=== PATIENT | female | born 1945 | race Caucasian/White ===

== ENCOUNTER 2016-10-05 09:45 | Inpatient (IN) ==
--- NOTE | 2016-10-04 21:19 | Discharge Summary ---
<Andreina Jiménez - Last Filed: 10/04/16 21:14> Date of Encounter: 10/04/16 - Discharge Diagnosis (1) Arthritis of knee, left Priority: Primary Status: Acute (2) HTN (hypertension) Priority: Secondary Status: Chronic Qualifiers: Hypertension type: essential hypertension Qualified Code(s): I10 - Essential (primary) hypertension - Discharge Medications Home Medications: Aspirin Enteric Coated [Aspirin EC] 325 mg PO DAILY #21 tablet. 10/04/16 [Rx] OxyCODONE Immed Rel [Roxicodone 5 MG] 5 - 10 mg PO Q6HR PRN #40 tablet 10/04/16 [Rx] Bisoprolol/HCTZ 5/6.25 [Ziac 5/6.25] 1 each PO DAILY 10/05/16 [History] Cetirizine HCl [Zyrtec] 10 mg PO DAILY 10/05/16 [History] Diclofenac Sodium [Voltaren] 1 appl TP QID PRN 10/05/16 [History] Omeprazole [PriLOSEC] 20 mg PO DAILY 10/05/16 [History] Tramadol HCl [Ultram] 50 mg PO QID PRN 10/05/16 [History] Allergies/Adverse Reactions: Allergies codeine Allergy (Verified 03/22/15 07:45) Itching morphine Allergy (Verified 03/22/15 07:45) Insomnia Primary care physician: Leilani Montejo CNP - Patient Status Disposition: Transfer Inpatient Rehab Fac Condition: Good - Discharge Instructions Follow Up With: Bereket Jamil MD [Partnered Physician] - 11/03/16 10:35 am Andreina Jiménez PAC [Physician Clay Mixer] - 10/15/16 1:45 pm Leilani Montejo CNP [Primary Care Provider] - 03/31/17 10:30 am Srini Manzanares MD [Partnered Physician] - 11/19/16 9:45 am - Hospital Course Hospital course: Ms. Miguel is a 71 year old female - Time Spent with Patient Total time spent providing and/or coordinating discharge services: <Bereket Jmail - Last Filed: 10/08/16 07:42> Date of Encounter: 10/08/16 Time of Encounter: 07:42 - Discharge Diagnosis (1) Arthritis of knee, left Priority: Primary Status: Acute (2) HTN (hypertension) Priority: Secondary Status: Chronic Qualifiers: Hypertension type: essential hypertension Qualified Code(s): I10 - Essential (primary) hypertension (3) Acute blood loss anemia Priority: Primary Status: Acute Primary care physician: Leilani Montejo CNP - Patient Status Functional capacity at discharge: uses cane/walker Overall status at discharge: patient is progressing back to baseline - Hospital Course Hospital course: Ms. Miguel is a 71 year old female The patient had an uneventful postoperative course. They received antibiotics and physical therapy and were discharged in stable condition. There will follow -up in the office in 2 weeks. Aspirin DVT prophylaxis - Time Spent with Patient Total time spent providing and/or coordinating discharge services:
--- NOTE | 2016-10-05 10:27 | History & Physical Report ---
Date of Encounter: 10/05/16 Time of Encounter: 10:27 24 Hour HP Update - Instructions Instructions: If the History and Physical is less than 30 days old and was completed prior to A.M. admission and or procedure and has NOT been updated on calendar day of procedure please complete this update prior to performing procedure. - Update Patient reports changes in Medical Condition: No Changes in examination, assessment, or condition: No Changes in Medication: No Preop tests/diagnostics Reviewed: Yes Surgery Remains Indicated: Yes Consent for Planned Operative Procedure(s) Verified: Yes - Pre-Operative Checklist Preoperative Checklist Indicated: No Prophylactic Antibiotic Ordered: Yes Is VTE Prophylaxis Indicated?: Yes
[2016-10-05] MEDS ORDERED: CeFAZolin Pre 2,000 MG/100 ML 2,000 MG/100 ML BAG IVPB ONE (10:35)
[2016-10-05] MEDS ORDERED: Albuterol 2.5 MG/3 ML NEBULIZER IH ONE (10:35)
[2016-10-05] MEDS ORDERED: Lidocaine -MPF 1% 2 ML VIAL ONE (10:36)
[2016-10-05] MEDS ORDERED: Ringers Solution, Lactated 1,000 ML IVC SCH ×2 (10:45→14:41)
[2016-10-05] MEDS ORDERED: *HR* Propofol 200 MG/20 ML VIAL IVP ONE (11:24)
[2016-10-05] MEDS ORDERED: *HR* FentaNYL (PF) 100 MCG/2 ML VIAL ONE (11:24)
[2016-10-05] MEDS ORDERED: *HR* Midazolam HCl 2 MG/2 ML VIAL ONE (11:24)
[2016-10-05] MEDS ORDERED: *HR* Succinylcholine 200 MG/10 ML VIAL IVP ONE (11:33)
[2016-10-05] MEDS ORDERED: Lidocaine -MPF 2% 2 ML VIAL ONE (11:33)
[2016-10-05] MEDS ORDERED: ROPIVACAINE HCL/PF 0.5% 30 ML VIAL ONE (12:02)
[2016-10-05] MEDS ORDERED: Bupivacaine/Clonidine Syringe 1 EACH SYRINGE ONE (12:02)
[2016-10-05] MEDS ORDERED: Tetracaine/PF 20 MG/2 ML AMPUL ONE (12:02)
[2016-10-05] MEDS ORDERED: Acetaminophen IV 1,000 MG/100 ML INFUS..BTL ONE (12:34)
[2016-10-05] MEDS ORDERED: Ondansetron 4 MG/2 ML VIAL ONE (12:38)
[2016-10-05] MEDS ORDERED: Dexamethasone 4 MG/ML VIAL ONE (12:38)
[2016-10-05] MEDS ORDERED: Ketorolac 30 MG/ML VIAL ONE (12:40)
[2016-10-05] MEDS ORDERED: *HR* Magnesium Sulfate 1 GM/2 ML VIAL ONE (12:40)
[2016-10-05] MEDS ORDERED: Ondansetron 4 MG/2 ML VIAL IVP PRN ×2 (12:48→14:41)
[2016-10-05] MEDS ORDERED: *HR* HYDROmorphone (PF) 1 MG/ML SYRINGE IVP PRN (12:48)
[2016-10-05] MEDS ORDERED: *HR* Labetalol 100 MG/20 ML MDV IVP PRN (12:48)
[2016-10-05] MEDS ORDERED: *HR* HYDROmorphone 2 MG/ML SYRINGE ONE (12:53)
--- NOTE | 2016-10-05 12:53 | Anesthesia Procedures ---
Date of Encounter: 10/05/16 Time of Encounter: 12:20 Procedures: Anesthesia - Nerve Block Procedure Date: 10/05/16 Time: 12:20 Allergies/Adv Reactions: codein, morphine Pre-op Diagnosis: left knee OA Surgical Procedure: left TKA Checklist: Correct Patient Identifier, Correct procedure, History checked Correct side: Left Blood Thinner: No Monitor Applied: EKG, BP, Pulse Oximetry Supplemental Oxygen via Nasal Cannula (L/min): 2 Sedation: Versed (mg): 2 Sedation: Fentanyl (mcg): 100 Indication: Post Op Analgesia Pre-op Neuro Deficits: No Block Type: Femoral, Other (iPACK) Catheter placed: No Sterile Technique: Yes Ultrasound used: Yes Anatomy identified: Yes Visual spread of Local: Yes Neuro Stimulation: Yes Nerve Stimulator Range: 0.2 - 0.4 mA (femoral only) Blood on Needle Aspiration: No Smooth Injection of Local: Yes Pain with Injection of Local: No Prep: Chlorhexadine Needle: 22 x 50 mm Stimuplex, 21 x 100 mm Stimuplex Local: 0.25% Bupivicaine w/Clonidine 20 mcg/cc, Tetracaine, Ropivacaine Volume (cc): 60 Number of Attempts: 1 Complications: None/effective block Vitals: Vital Signs/O2 Sat/Glucose, Most Recent Temp Pulse Resp BP Pulse Ox 97.7 F 76 16 143/44 97 10/05/16 10:41 10/05/16 12:26 10/05/16 12:26 10/05/16 12:26 10/05/16 12:26
--- NOTE | 2016-10-05 13:09 | Orthopedic Operative Note ---
Date of procedure: 10/05/16 Pre-op diagnosis: Left knee arthritis Post-op diagnosis: same Procedure: Procedure: Left Total knee replacement Estimated blood loss: 200 cc Hardware: Arthrex Femur: 6 Tibia: 5 PS insert: 11 Patella: 37 Exam Under anesthesia: Full flexion and full extension no instability Procedural Notes: Grade 3 arthritic changes medial compartment grade 4 changes patellofemoral joint. Operative procedure: The patient was brought to the operating room and placed on the operating room table. After general anesthesia was administered the operative knee was examined. Findings were noted in the exam under anesthesia. The operative extremity was prepped and draped in sterile surgical fashion. The patient received IV antibiotics prior to skin incision. A standard midline incision was made centered over the patella. The incision was made through the skin and subcutaneous tissue. A medial parapatellar tendon approach was performed. Care was taken to preserve tissue along the medial aspect of the patella. And to protect the patella tendon. The deep MCL was released off the medial tibia. The infra patella fat pad was excised. Knee was brought into flexion. Patient noted to have grade 3 arthritic changes medial compartment grade 4 changes patellofemoral joint. The entry hole was made for the intramedullary femoral guide. The guide was seated in 6 degrees of valgus. Anterior cut was made followed by the distal cut. The ACL the PCL the medial and the lateral menisci were excised. The tibia was subluxed forward. The entry hole was made for the intramedullary tibial guide. Guide was seated to resect 2 mm off the more abnormal side. The knee was brought into flexion the distal femur was sized to a 6. The femoral guide was seated, the anterior cut was made followed by the posterior condylar cut, followed by the chamfer cuts. The finishing guide was seated the box cut was made and the lug holes were drilled. The tibia was sized to a 5, the tibial tray was seated and prepared with the large drill followed by the fin cutter. Trial reduction revealed full extension no varus valgus instability with the appropriate 11 PS Germaine. The patella was everted and cut was made at the level of the insertion of the quadriceps and patella tendon. The patella was sized 37 the guide was seated and the lug holes are drilled. Trial reduction revealed excellent patella tracking. All trial components were removed all bony surfaces were irrigated. The tibia was cemented first followed by the femur. The 11 PS Germaine was seated and the knee was brought into full extension. The patella was cemented and held in place with the patellar holding clamp. After the cement had hardened, the knee sat for 2 minutes with a Betadine saline solution. The knee was then irrigated out with 2 L of pulse irrigation. The extensor mechanism was closed with #2 FiberWire suture and #2 PDS suture. The subcutaneous tissue was then irrigated and closed deep with #1 PDS suture superficially with 0 PDS suture and skin was closed with skin alexandro. The patient was then placed in a sterile dressing and a postoperative brace extubated and transferred to recovery room in stable condition. Anesthesia: J CARLOS Surgeon: Bereket Jamil Construction Sales Representative: Lianna Flores Condition: stable Disposition: PACU
--- NOTE | 2016-10-05 14:22 | Anesthesia Evaluation PreOp ---
Date of Encounter: 10/05/16 Time of Encounter: 12:00 - Past History Planned Operation: Left TKA Cardiac History: HTN Pulmonary History: Denies Any Significant HX CERTIFIED TECHNICIAN SPECIALIST History: Denies Any Significant HX Other Medical History: Renal (CRI), GERD, Other (IBS) Anesthesia History: No Prior Anesthetic Complications : No Alcohol Use: none Drug use: none Medications and Allergies Aspirin Enteric Coated [Aspirin EC] 325 mg PO DAILY #21 tablet. 10/04/16 [Rx] OxyCODONE Immed Rel [Roxicodone 5 MG] 5 - 10 mg PO Q6HR PRN #40 tablet 10/04/16 [Rx] Bisoprolol/HCTZ 5/6.25 [Ziac 5/6.25] 1 each PO DAILY 10/05/16 [History] Cetirizine HCl [Zyrtec] 10 mg PO DAILY 10/05/16 [History] Diclofenac Sodium [Voltaren] 1 appl TP QID PRN 10/05/16 [History] Omeprazole [PriLOSEC] 20 mg PO DAILY 10/05/16 [History] Tramadol HCl [Ultram] 50 mg PO QID PRN 10/05/16 [History] Allergies codeine Allergy (Verified 03/22/15 07:45) Itching morphine Allergy (Verified 03/22/15 07:45) Insomnia - Meds/Allergy Pre-op Review Medications Reviewed: Yes Allergies Reviewed: Yes Beta Blockers on Current Med List: No Anesthesia Results - Labs Laboratory Tests 09/29/16 09/29/16 11:21 11:21 Hgb 14.3 Hct 44.6 Plt Count 246 Sodium 143 Potassium 3.6 BUN 26 H Creatinine 1.13 H - Imaging EKG: report reviewed Anesthesia Exam O2 Sat Height 1.68 m Height 1.68 m Height 1.68 m Weight 105.687 kg Weight 105.687 kg Weight 105.687 kg O2 Sat by Pulse Oximetry 97 O2 Sat by Pulse Oximetry 97 O2 Sat by Pulse Oximetry 95 O2 Sat by Pulse Oximetry 97 O2 Sat by Pulse Oximetry 96 O2 Sat by Pulse Oximetry 96 O2 Sat by Pulse Oximetry 96 Vital Signs Temp Pulse Resp BP Pulse Ox 97.7 F 59 18 158/57 96 10/05/16 10:36 10/05/16 10:36 10/05/16 10:36 10/05/16 10:36 10/05/16 10:36 Height: 5'6 Weight: 233 lbs NPO (# of Hours): MN Pain Scale: 0 - HEENT Pupil (Motor): Pupils equal, EOMI Mallampati: III Teeth: Normal Oral Opening: Less than or equal to 3 - CERTIFIED TECHNICIAN SPECIALIST LOC: Oriented CERTIFIED TECHNICIAN SPECIALIST Motor: Normal RUE, Normal LUE, Normal RLE, Normal LLE, Normal Face CERTIFIED TECHNICIAN SPECIALIST Sensory: Normal: RUE, LUE, RLE, LLE, Face - Cardiac Rhythm: Regular Murmur: None JVD: No Carotid Bruit: No - Pulmonary Breath Sounds: bilateral Clear Respiratory Effort: Symmetrical Anesthesia Assess/Plan ASA Score: 3 Modified Calista Scale for Level of Consciousness: Cooperative, oriented, and tranquil Anesthetic Plan: General, Regional Monitoring Plan: Standard Monitors Recovery Plan: PACU (Discussed GA and RA, agrees to proceed)
--- NOTE | 2016-10-05 14:40 | Anesthesia Evaluation Post Op ---
Date of Encounter: 10/05/16 Time of Encounter: 14:25 - Vital Signs Vital Signs: Vital Signs/O2 Sat/Glucose, Most Current Temp Pulse Resp BP Pulse Ox 10/05/16 14:37 97.7 F 67 16 112/66 95 10/05/16 14:20 98.5 F 72 16 149/72 95 10/05/16 14:10 98.7 F 74 14 151/69 96 10/05/16 14:00 74 14 145/66 97 10/05/16 13:50 79 14 139/60 97 10/05/16 13:40 98.1 F 79 16 132/59 95 10/05/16 12:26 76 16 143/44 97 10/05/16 12:15 70 16 183/64 96 10/05/16 10:41 97.7 F 59 18 158/57 96 - Lungs Lungs: Clear Ascult./Percussion - Airway Airway: Non-obstructed - Cardiovascular Regular Rate - Mental Status Mental Status: Alert & Oriented, Answers Appropriately - Pain Pain Scale: 0 - Nausea Vomiting Nausea Vomiting: Not Present - Hydration Hydration: Ice chips - Discharge PostOp Status: Transfer Patient to floor
[2016-10-05] MEDS ORDERED: MOM Conc 10 ML UD.LIQ PO PRN (14:41)
[2016-10-05] MEDS ORDERED: Acetaminophen 325 MG TABLET PO PRN ×2 (14:41→14:45)
[2016-10-05] MEDS ORDERED: *HR* OxyCODONE Immed Rel 5 MG TABLET PO PRN (14:41)
[2016-10-05] MEDS ORDERED: Naloxone 0.4 MG/ML INJ IVP PRN (14:41)
[2016-10-05] MEDS ORDERED: traMADol 50 MG TABLET PO PRN (14:41)
[2016-10-05] MEDS ORDERED: Temazepam 15 MG CAPSULE PO PRN (14:41)
[2016-10-05] MEDS ORDERED: Sennosides 8.6 MG TABLET PO PRN (14:41)
[2016-10-05] MEDS: *HR* HYDROmorphone (PF) 1 MG/ML SYRINGE IVP PRN (15:34)
[2016-10-05 16:01] LABS: Hematocrit 38.2 % (35.3-44.9)
[2016-10-05] MEDS: *HR* OxyCODONE Immed Rel 5 MG TABLET PO PRN ×2 (17:06→21:04)
[2016-10-05] MEDS: *HR* Enoxaparin 30 MG/0.3 ML SYRINGE SQ SCH (17:06)
[2016-10-05] MEDS ORDERED: *HR* Enoxaparin 30 MG/0.3 ML SYRINGE SQ SCH (18:00)
[2016-10-05] MEDS: ceFAZolin 2,000 MG in D5% in Water 100 ML IVPB SCH (21:04)
[2016-10-06] MEDS: *HR* OxyCODONE Immed Rel 5 MG TABLET PO PRN ×3 (02:01→16:12)
[2016-10-06] MEDS: ceFAZolin 2,000 MG in D5% in Water 100 ML IVPB SCH (04:43)
[2016-10-06] MEDS: *HR* HYDROmorphone (PF) 1 MG/ML SYRINGE IVP PRN ×2 (04:44→21:23)
[2016-10-06] MEDS: *HR* Enoxaparin 30 MG/0.3 ML SYRINGE SQ SCH ×2 (05:08→16:12)
[2016-10-06 05:15] LABS: Hemoglobin 12.3 g/dL (11.5-15.4)
[2016-10-06 05:32] LABS: BUN/Creatinine Ratio 22 (6-26); Blood Urea Nitrogen 21 mg/dL (7-20); Carbon Dioxide 22 mEq/L (19-29); Chloride 105 mEq/L (98-109); Glucose 122 mg/dL (70-99); Osmolality,Calculated 288 (280-300); Potassium 5.4 mEq/L (3.5-4.5); Sodium 137 mEq/L (136-145); eGFR For African Americans > 60 (> 60); eGFR For Non-African Americans 57 (> 60)
--- NOTE | 2016-10-06 06:21 | Orthopedics Progress Note ---
Date of Encounter: 10/06/16 Time of Encounter: 06:20 - Assessment and Plan (1) Arthritis of knee, left Current Visit: Yes Status: Acute (2) HTN (hypertension) Current Visit: Yes Status: Chronic Qualifiers: Hypertension type: essential hypertension Qualified Code(s): I10 - Essential (primary) hypertension Subjective Interval history: Patient was seen this morning doing well without complaints. Afebrile vital signs stable. Operative extremity: Neurovascularly intact Dressing bloody change today Calves nontender Assessment and plan: Continue with postoperative care hematocrit 36 Objective Vital signs: Vital Signs Temp Pulse Resp BP Pulse Ox 10/06/16 03:59 98.4 F 60 15 169/84 97 10/06/16 00:16 97.5 F L 58 17 167/77 99 10/05/16 19:35 97.7 F 59 19 138/81 99 10/05/16 16:17 97.7 F 63 14 134/71 99 10/05/16 15:45 97.7 F 62 14 144/83 92 10/05/16 14:37 97.7 F 67 16 112/66 95 10/05/16 14:20 98.5 F 72 16 149/72 95 10/05/16 14:10 98.7 F 74 14 151/69 96 10/05/16 14:00 74 14 145/66 97 10/05/16 13:50 79 14 139/60 97 10/05/16 13:40 98.1 F 79 16 132/59 95 10/05/16 12:26 76 16 143/44 97 10/05/16 12:15 70 16 183/64 96 10/05/16 10:41 97.7 F 59 18 158/57 96 10/05/16 10:36 97.7 F 59 18 158/57 96 Intake and Output 10/05/16 10/05/16 10/06/16 15:59 23:59 07:59 Intake Total 100 / 100 100 / 100 Output Total 200 / 200 500 / 500 700 / 700 Balance -100 / -100 -400 / -400 -700 / -700 Intake: IV Fluids 100 / 100 100 / 100 Ancef 2,000 MG In 100 / 100 Dextrose 5% 100 ML @ 200 mls/hr IVPB Q8H [facility] Rx#: [id number] Ancef Premix 2,000 MG/100 100 / 100 ML 2,000 mg In 100 ml @ 200 mls/hr IVPB PREOP ONE Rx#:[id number] Oral 0 / 0 Output: Urine 500 / 500 700 / 700 Estimated Blood Loss 200 / 200 Other: Weight 105.687 kg - Labs CBC & BMP: 10/06/16 03:56 10/06/16 03:56 Labs: Abnormal lab results Potassium 5.4 mEq/L (3.5-4.5) H 10/06/16 03:56 BUN 21 mg/dL (7-20) H 10/06/16 03:56 Est GFR (Non-Af Amer) 57 (> 60) L 10/06/16 03:56 Glucose 122 mg/dL (70-99) H 10/06/16 03:56 - VTE Documentation of Mechanical Device: Venous foot pump, device Consult Discharge Plan - Plan Referrals: Leilani Montejo, FINANCIAL ADMINISTRATOR [Primary Care Provider] -
[2016-10-06] MEDS: Bisoprolol/HCTZ 5/6.25 TABLET PO SCH (09:40)
[2016-10-06] MEDS: Loratadine 10 MG TABLET PO SCH (09:40)
[2016-10-07] MEDS: *HR* OxyCODONE Immed Rel 5 MG TABLET PO PRN ×4 (02:59→21:55)
[2016-10-07 05:16] LABS: Hematocrit 29.8 % (35.3-44.9)
[2016-10-07 05:17] LABS: Hemoglobin 10.3 g/dL (11.5-15.4)
[2016-10-07 05:28] LABS: BUN/Creatinine Ratio 23 (6-26); Blood Urea Nitrogen 19 mg/dL (7-20); Calcium 8.3 mg/dL (8.6-10.8); Carbon Dioxide 24 mEq/L (19-29); Chloride 103 mEq/L (98-109); Glucose 125 mg/dL (70-99); Osmolality,Calculated 282 (280-300); Sodium 134 mEq/L (136-145); eGFR For African Americans > 60 (> 60); eGFR For Non-African Americans > 60 (> 60)
[2016-10-07 05:29] LABS: Potassium 4.1 mEq/L (3.5-4.5)
[2016-10-07] MEDS: *HR* Enoxaparin 30 MG/0.3 ML SYRINGE SQ SCH ×2 (06:15→19:59)
[2016-10-07] MEDS: *HR* HYDROmorphone (PF) 1 MG/ML SYRINGE IVP PRN (06:19)
--- NOTE | 2016-10-07 06:44 | Orthopedics Progress Note ---
Date of Encounter: 10/07/16 Time of Encounter: 06:44 - Assessment and Plan (1) Arthritis of knee, left Current Visit: Yes Status: Acute (2) HTN (hypertension) Current Visit: Yes Status: Chronic Qualifiers: Hypertension type: essential hypertension Qualified Code(s): I10 - Essential (primary) hypertension Subjective Interval history: Patient was seen this morning doing well without complaints. Afebrile vital signs stable. Operative extremity: Neurovascularly intact Dressing bloody change today Calves nontender Assessment and plan: Continue with postoperative care hemoglobin 10 Objective Vital signs: Vital Signs Temp Pulse Resp BP Pulse Ox 10/07/16 06:33 99.1 F 87 16 115/75 95 10/07/16 02:02 98.5 F 74 16 129/62 93 10/06/16 20:05 99.1 F 74 16 141/59 96 10/06/16 15:07 98.3 F 72 18 134/73 98 10/06/16 15:00 98 10/06/16 10:42 98.0 F 73 18 135/76 100 Intake and Output 10/06/16 10/06/16 10/07/16 15:59 23:59 07:59 Intake Total 1580 / 1580 0 / 0 Output Total 450 / 450 100 / 100 Balance 1130 / 1130 0 / 0 -100 / -100 Intake: IV Fluids 1100 / 1100 Ancef 2,000 MG In 100 / 100 Dextrose 5% 100 ML @ 200 mls/hr IVPB Q8H [facility] Rx#: [id number] Oral 480 / 480 0 / 0 Output: Urine 450 / 450 100 / 100 Other: Meal Lunch Dinner Percent of Meal Consumed 100% 0% # Voids 1 # Urine Diapers 3 1 1 - Labs CBC & BMP: 10/07/16 05:08 10/07/16 05:08 Labs: Abnormal lab results Hgb 10.3 g/dL (11.5-15.4) L D 10/07/16 05:08 Hct 29.8 % (35.3-44.9) L 10/07/16 05:08 Sodium 134 mEq/L (136-145) L 10/07/16 05:08 Glucose 125 mg/dL (70-99) H 10/07/16 05:08 Calcium 8.3 mg/dL (8.6-10.8) L 10/07/16 05:08 - VTE Documentation of Mechanical Device: Venous foot pump, device Consult Discharge Plan - Plan Referrals: Bereket Jamil MD [Partnered Physician] - 11/03/16 10:35 am Andreina Jiménez, PAC [Physician Quality Assurance Coordinator] - 10/15/16 1:45 pm Leilani Montejo, NOTE SPECIALIST [Primary Care Provider] - 03/31/17 10:30 am Srini Manzanares MD [Partnered Physician] - 11/19/16 9:45 am
[2016-10-07] MEDS: Loratadine 10 MG TABLET PO SCH (08:37)
[2016-10-07] MEDS: Bisoprolol/HCTZ 5/6.25 TABLET PO SCH (08:37)
[2016-10-07] MEDS: Gabapentin 300 MG CAPSULE PO SCH (19:59)
[2016-10-08] MEDS: *HR* OxyCODONE Immed Rel 5 MG TABLET PO PRN (06:41)
--- NOTE | 2016-10-08 07:43 | Orthopedics Progress Note ---
Date of Encounter: 10/08/16 Time of Encounter: 07:43 - Assessment and Plan (1) Arthritis of knee, left Current Visit: Yes Status: Acute (2) HTN (hypertension) Current Visit: Yes Status: Chronic Qualifiers: Hypertension type: essential hypertension Qualified Code(s): I10 - Essential (primary) hypertension (3) Acute blood loss anemia Current Visit: Yes Status: Acute Subjective Interval history: Patient was seen this morning doing well without complaints. Afebrile vital signs stable. Operative extremity: Neurovascularly intact Dressing bloody change today Calves nontender Assessment and plan: Continue with postoperative care discharged today Objective Vital signs: Vital Signs Temp Pulse Resp BP Pulse Ox 10/08/16 06:30 98.5 F 78 16 154/73 94 10/08/16 00:05 98.5 F 86 17 150/79 93 10/07/16 19:00 98.7 F 77 17 145/57 98 10/07/16 15:49 98.0 F 70 16 130/55 94 10/07/16 12:08 98.3 F 85 16 125/76 96 Intake and Output 10/07/16 10/07/16 10/08/16 15:59 23:59 07:59 Intake Total 350 / 350 600 / 600 Output Total 350 / 350 675 / 675 Balance 0 / 0 -75 / -75 Intake: Oral 350 / 350 600 / 600 Output: Urine 350 / 350 675 / 675 Other: Meal Breakfast Percent of Meal Consumed 50% Stool Color Yellow - Labs CBC & BMP: 10/07/16 05:08 10/07/16 05:08 Labs: Abnormal lab results Hgb 10.3 g/dL (11.5-15.4) L D 10/07/16 05:08 Hct 29.8 % (35.3-44.9) L 10/07/16 05:08 Sodium 134 mEq/L (136-145) L 10/07/16 05:08 Glucose 125 mg/dL (70-99) H 10/07/16 05:08 Calcium 8.3 mg/dL (8.6-10.8) L 10/07/16 05:08 - VTE Documentation of Mechanical Device: Venous foot pump, device Consult Discharge Plan - Plan Referrals: Bereket Jamil MD [Partnered Physician] - 11/03/16 10:35 am Andreina Jiménez, DEONTE [Physician Stonecutter] - 10/15/16 1:45 pm Leilani Montejo EQUINE MANAGER [Primary Care Provider] - 03/31/17 10:30 am Srini Manzanares MD [Partnered Physician] - 11/19/16 9:45 am
[2016-10-08] MEDS: Loratadine 10 MG TABLET PO SCH (08:01)
[2016-10-08] MEDS: Gabapentin 300 MG CAPSULE PO SCH (08:01)
[2016-10-08] MEDS: *HR* Enoxaparin 30 MG/0.3 ML SYRINGE SQ SCH (08:01)
[2016-10-08] MEDS: Bisoprolol/HCTZ 5/6.25 TABLET PO SCH (08:01)
[2016-10-08 13:24] VITALS: BP 148/81
== END 2016-10-08 13:08 | DRG 470 ==
LOC: SAMDAY 09:45 → 3NENU 14:18
PROVIDERS: ADMIT Orthopaedic Surgery; ATTEND Orthopaedic Surgery

== ENCOUNTER 2018-09-12 10:39 | Inpatient (IN) ==
--- NOTE | 2018-09-12 08:24 | Discharge Summary ---
<Lianna Flores - Last Filed: 09/12/18 08:23> Date of Encounter: 09/12/18 - Hospital Course Hospital course: Ms. Miguel is a 73 year old female - Time Spent with Patient Total time spent providing and/or coordinating discharge services: - Discharge Medications Prescriptions: New OxyCODONE Immed Rel [Roxicodone 5 MG] 5 mg PO Q6HR PRN 5 Days #20 tablet PRN Reason: Severe Pain Aspirin Enteric Coated [Aspirin EC] 325 mg PO BID 10 Days #20 tablet. Docusate Sodium [Colace] 100 mg PO BID 5 Days #10 capsule No Action Tramadol HCl [Ultram] 50 mg PO QID PRN PRN Reason: Moderate Pain Cetirizine HCl [Zyrtec] 10 mg PO DAILY Omeprazole [PriLOSEC] 20 mg PO DAILY Bisoprolol/HCTZ 5/6.25 [Ziac 5/6.25] 1 tab PO DAILY Docusate [Colace] 100 mg PO DAILY Cholecalciferol (D-3) [Vitamin D] 1,000 unit PO DAILY Home Medications: Bisoprolol/HCTZ 5/6.25 [Ziac 5/6.25] 1 tab PO DAILY 10/05/16 [History] Cetirizine HCl [Zyrtec] 10 mg PO DAILY 10/05/16 [History] Omeprazole [PriLOSEC] 20 mg PO DAILY 10/05/16 [History] Tramadol HCl [Ultram] 50 mg PO QID PRN 10/05/16 [History] Aspirin Enteric Coated [Aspirin EC] 325 mg PO BID 10 Days #20 tablet. 09/12/18 [Rx] Cholecalciferol (D-3) [Vitamin D] 1,000 unit PO DAILY 09/12/18 [History] Docusate Sodium [Colace] 100 mg PO BID 5 Days #10 capsule 09/12/18 [Rx] Docusate [Colace] 100 mg PO DAILY 09/12/18 [History] OxyCODONE Immed Rel [Roxicodone 5 MG] 5 mg PO Q6HR PRN 5 Days #20 tablet 09/12/18 [Rx] Allergies/Adverse Reactions: Allergy/AdvReac Type Severity Reaction Status Date / Time codeine Allergy Itching Verified 08/31/18 13:42 morphine Allergy Insomnia Verified 08/31/18 13:42 Primary care physician: Leilani Montejo CNP - Patient Status Disposition: Home, Self-Care Condition: Good - Discharge Instructions Follow Up With: Lianna Flores PAC [Physician Construction Sales Manager] - 09/22/18 9:30 am Bereket Jamil MD [Partnered Physician] - 10/12/18 4:45 pm Leilani Montejo CNP [Primary Care Provider] - 09/29/18 10:00 am Additional Instructions: Discharge Instructions: Total Knee Replacement Please call [facility] ([phone]), your Primary Care Physician, or report to the Emergency Room if you have any of the following symptoms: Nausea, vomiting, fever greater that 101.5, swelling, chest pain, shortness of breath, increased pain/redness/drainage/odor for your incision site, numbness/tingling, or any other concerning symptoms. ACTIVITY:Weight-bearing as tolerated. You may progress off support (crutches or walker) as tolerated. Incentive Spirometer 10 times an hour. MEDICATIONS: Upon discharge resume your home medications. Take all the medications as prescribed. Take a stool softener if taking narcotic pain me dications. Stool softeners are only effective if you drink enough fluids. Drink 6-8 glass of water or fluids a day, unless this is not allowed for another health problem. Despite using stool softeners, if you haven't had a bowel movement in 3 days, please switch to a gentle laxative. Gentle laxatives are sold over the counter. You should have a bowel movement within 24 hours, if not call the office. You will be discharged from the hospital with a prescription for pain medication. You are encouraged to decrease the use of narcotic pain medication as tolerated. Should you require a refill, please call the office. [facility] prescribes narcotic pain medication for only 4-6 weeks after surgery. If you require pain medication beyond this time period, you may be referred to your Primary Care Physician or to the Pain Clinic for further evaluation. Plan ahead for refills on pain medication as many narcotics either need to be picked up at the office or mailed. It is best to call 48-72 hours in advance of needing a prescription refill so you don't run out of medication. To help control the post-operative pain, you may take NSAIDs (Aleve,Advil, Motrin, Ibuprofen, Naprosyn) or Tylenol as prescribed on the bottle in addition to the pain medication. ANTICOAGULATION (blood thinners): Continue your Aspirin, Lovenox or Coumadin as prescribed to help prevent a blood clot in the leg or in the lungs. As long as your incision remains dry and you tolerate the NSAIDs (Aleve, Advil, Motrin, ibuprofen, naprosyn), it is OK to use the NSAIDS while you are taking your anticoagulation medication. Should your incision start to drain, stop the NSAID and contact our office. Common symptoms of blood clot in the legs include: localized pain, swelling, calf tenderness, redness or discoloration of the skin. Blood clot in the lung symptoms include: shortness of breath, rapid pulse, sweating, and chest pain that worsens with deep breathing, coughing up blood, lightheadedness, feelings of anxiety. If you experience any of these symptoms notify your physician immediately, go to the emergency room, or if having trouble breathing, call 911. WOUND CARE: Leave the dressing on for 7 to 10days. You may change the dressing if it becomes saturated greater than 50%. Do not get the dressing wet at anytime. Wash your hands with antibacterial soap, rinse and dry prior to any wound care. If you have alexandro the visiting nurse or rehab facility can remove the stapes 10-14 days after surgery and place steri-strips across the wound. Leave the steri-strips in place until they fall off on their won. You may let water from the shower run on top of the steri-strips. If you do not have a visiting nurse or rehab facility, you will need to return to the office at 10-14 days for the alexandro to be removed. If you have itching or redness around the dressing call the office. FOLLOW-UP: Please follow up with your surgeon in the orthopedic clinic in 4 weeks from the day of surgery. If you have alexandro that need to be removed, you will need to come back to the office in 10-14 days from the day of surgery. <Lianna Doherty - Last Filed: 09/14/18 17:35> Orders not resulted at time of discharge: Pending orders 09/12/18 01:00 XR knee RT 1-2V [XR] Routine Hemoglobin and Hematocrit [HEME] Routine 09/12/18 11:12 US anesthesia pain block [US] Routine Date of Encounter: 09/14/18 Time of Encounter: 12:20 - Discharge Diagnosis (1) Status post total right knee replacement Priority: Primary Status: Acute (2) Osteoarthritis of right knee Priority: Secondary Status: Chronic Qualifiers: Osteoarthritis type: unspecified Qualified Code(s): M17.11 - Unilateral primary osteoarthritis, right knee (3) Obesity (BMI 30-39.9) Priority: Secondary Status: Chronic (4) Chronic kidney disease (CKD) Priority: Secondary Status: Chronic Qualifiers: Chronic kidney disease stage: stage 3 (moderate) Qualified Code(s): N18.3 - Chronic kidney disease, stage 3 (moderate) (5) GERD (gastroesophageal reflux disease) Priority: Secondary Status: Chronic Qualifiers: Esophagitis presence: esophagitis presence not specified Qualified Code(s): K21.9 - Gastro-esophageal reflux disease without esophagitis (6) HTN (hypertension) Priority: Secondary Status: Chronic Qualifiers: Hypertension type: essential hypertension Qualified Code(s): I10 - Essential (primary) hypertension - Hospital Course Hospital course: Ms. Miguel is a 73 year old female status post right TKR with medical history of OA, CKD stage 3, HTN, GERD. She participated in therapy and had an uneventful hospital course. Stable for discharge. She will follow up in [facility] office next week. POD#2 s/p Right TKR 09/12/18 Patient seen at bedside, without complaints. A&O x 3 Afebrile, vital signs stable. No further bleeding since yesterday. will change dressings today. no calf tenderness to palpation, good dorsiflexion of foot. sensation intact distally Labs reviewed. H/H - 11.0/34.1 stable, asymptomatic CKD - monitoring, labs stable to preop Pain control: adequate Participating in PT. Patient showed significant improvement in therapy today and recommendation was changed from ECF to outpatient therapy and patient is in agreement with this and feels comfortable/safe with this change. All questions and concerns addressed. Educated on use of incentive spirometer. Encouraged ambulation and proper hydration. Patient educated on post-operative restrictions and post-operative care. Assessment and plan: Continue with postoperative care Discharge plan: home with outpatient therapy, DC today. - Time Spent with Patient Total time spent providing and/or coordinating discharge services: Date of admission: 09/12/18 Primary care physician: Leilani Montejo CNP Discharging clinician: Bereket Jamil Anticipated date of discharge: 09/14/18 Labs on day of discharge: Short CBC 09/14/18 Range/Units 07:09 WBC 8.7 (4.3-11.1) K/mcL Hgb 11.0 L (11.5-15.4) g/dL Hct 34.1 L (35.3-44.9) % Plt Count 180 (140-400) K/mcL Neutrophils # 5.4 (1.6-8.9) K/mcL BMP 09/14/18 Range/Units 07:09 Sodium 143 (136-145) mEq/L Potassium 3.6 (3.5-5.1) mEq/L Chloride 109 H (98-107) mEq/L Carbon Dioxide 27 (23-29) mEq/L BUN 29 H (8-23) mg/dL Creatinine 1.10 (0.60-1.20) mg/dL Glucose 91 (70-105) mg/dL Calcium 9.0 (8.6-10.3) mg/dL - Impressions Knee X-Ray 09/12/18 01:00 IMPRESSION: Total knee arthropasty without acute hardware complication. D/ / Kishor Fernandez MD / Kishor Fernandez MD Interpreting Provider: Kishor Fernandez MD - Patient Status Functional capacity at discharge: uses cane/walker Overall status at discharge: patient is back to baseline - Diet and Activity Activity: ambulate only with your walker, as per physical therapy Diet: advance to your usual diet
[~2018-09-12 10:39] MED LIST: Total Joint Mixture (50 ml) IR ONE
[2018-09-12] MEDS ORDERED: Famotidine 20 MG/2 ML VIAL IVP ONE (11:08)
[2018-09-12] MEDS ORDERED: Celecoxib 100 MG CAPSULE PO ONE (11:10)
[2018-09-12] MEDS ORDERED: Gabapentin 300 MG CAPSULE PO ONE (11:10)
[2018-09-12] MEDS ORDERED: *HR* OxyCODONE ER (12 HR) 10 MG TABLET PO ONE (11:10)
--- NOTE | 2018-09-12 11:10 | History & Physical Report ---
Date of Encounter: 09/12/18 Time of Encounter: 11:10 24 Hour HP Update - Instructions Instructions: If the History and Physical is less than 30 days old and was completed prior to A.M. admission and or procedure and has NOT been updated on calendar day of procedure please complete this update prior to performing procedure. - Update Patient reports changes in Medical Condition: No Changes in examination, assessment, or condition: No Changes in Medication: No Preop tests/diagnostics Reviewed: Yes Surgery Remains Indicated: Yes Consent for Planned Operative Procedure(s) Verified: Yes - Pre-Operative Checklist Preoperative Checklist Indicated: No Prophylactic Antibiotic Ordered: Yes Is VTE Prophylaxis Indicated?: Yes
[2018-09-12] MEDS ORDERED: Ringers Solution, Lactated 1,000 ML IVC SCH ×2 (11:15→15:45)
[2018-09-12] MEDS ORDERED: CeFAZolin Syr 2,000MG/20 ML 2,000 MG/20 ML SYRINGE IVPB ONE (11:30)
[2018-09-12] MEDS ORDERED: *HR* FentaNYL (PF) 100 MCG/2 ML VIAL ONE (11:32)
[2018-09-12] MEDS ORDERED: *HR* Midazolam HCl 2 MG/2 ML VIAL ONE (11:32)
[2018-09-12] MEDS ORDERED: Lidocaine -MPF 2% 2 ML VIAL ONE (11:33)
[2018-09-12] MEDS ORDERED: Propofol 500 MG/50 ML INFUS..BTL ONE (11:35)
[2018-09-12] MEDS ORDERED: *HR* Propofol 200 MG/20 ML VIAL IVP ONE (11:36)
[2018-09-12] MEDS ORDERED: ROPIVACAINE HCL/PF 0.5% 30 ML VIAL ONE (11:44)
--- NOTE | 2018-09-12 11:50 | Anesthesia Evaluation PreOp ---
Date of Encounter: 09/12/18 Time of Encounter: 11:30 - Past History Planned Operation: Rt TKA Cardiac History: HTN, Hyperlipidemia Pulmonary History: Other (Restrictive Lung Disease) [employer] History: Denies Any Significant HX Other Medical History: GERD, Other (IBS Obese) : No Alcohol Use: none Drug use: none Medications and Allergies Aspirin Enteric Coated [Aspirin EC] 325 mg PO DAILY #21 tablet. 10/04/16 [Rx] OxyCODONE Immed Rel [Roxicodone 5 MG] 5 - 10 mg PO Q6HR PRN #40 tablet 10/04/16 [Rx] Bisoprolol/HCTZ 5/6.25 [Ziac 5/6.25] 1 each PO DAILY 10/05/16 [History] Cetirizine HCl [Zyrtec] 10 mg PO DAILY 10/05/16 [History] Diclofenac Sodium [Voltaren] 1 appl TP QID PRN 10/05/16 [History] Omeprazole [PriLOSEC] 20 mg PO DAILY 10/05/16 [History] Tramadol HCl [Ultram] 50 mg PO QID PRN 10/05/16 [History] Aspirin Enteric Coated [Aspirin EC] 325 mg PO BID 10 Days #20 tablet. 09/12/18 [Rx] Docusate Sodium [Colace] 100 mg PO BID 5 Days #10 capsule 09/12/18 [Rx] OxyCODONE Immed Rel [Roxicodone 5 MG] 5 mg PO Q6HR PRN 5 Days #20 tablet 09/12/18 [Rx] Allergy/AdvReac Type Severity Reaction Status Date / Time codeine Allergy Itching Verified 08/31/18 13:42 morphine Allergy Insomnia Verified 08/31/18 13:42 - Meds/Allergy Pre-op Review Medications Reviewed: Yes Allergies Reviewed: Yes Beta Blockers on Current Med List: Yes (Sotalol today 0830) Anesthesia Results - Labs Laboratory Tests 08/31/18 08/31/18 14:43 14:43 Hgb 13.4 Hct 40.0 Plt Count 241 Sodium 141 Potassium 4.4 BUN 23 Creatinine 1.01 - Imaging EKG: report reviewed (SR) Additional studies: Stress Test 2017 negative for ischemia EF 68% Anesthesia Exam O2 Sat Height 1.68 m Height 1.68 m Weight 102.965 kg Weight 102.965 kg O2 Sat by Pulse Oximetry 96 Vital Signs Temp Pulse Resp BP Pulse Ox 97.4 F L 59 18 143/61 96 09/12/18 11:08 09/12/18 11:08 09/12/18 11:08 09/12/18 11:08 09/12/18 11:08 Height: 5'6 Weight: 227 lbs NPO (# of Hours): MN Pain Scale: 0 - HEENT Pupil (Motor): Pupils equal, EOMI Mallampati: II Teeth: Normal Oral Opening: Greater than 3 - [employer] LOC: Oriented [employer] Motor: Normal RUE, Normal LUE, Normal RLE, Normal LLE, Normal Face [employer] Sensory: Normal: RUE, LUE, RLE, LLE, Face - Cardiac Rhythm: Regular Murmur: None JVD: No Carotid Bruit: No - Pulmonary Breath Sounds: bilateral Clear Respiratory Effort: Symmetrical Anesthesia Assess/Plan ASA Score: 3 (HTN Restrictive Lung Disease IBS Gerd Obese) Level of consciousness: Cooperative, Oriented Anesthetic Plan: Spinal Regional Nerve Block Plan: Adductor canal Autologous Blood: No Monitoring Plan: Standard Monitors Recovery Plan: PACU (Discussed SAB with Adductor Canal Block, possible GA, agrees to proceed)
[2018-09-12] MEDS ORDERED: Ethanol\\Acetic Acid\\Na Ace\\Ben 1,000 ML IRRIG.SOLN IR ONE (12:00)
[2018-09-12] MEDS ORDERED: Lidocaine -MPF 1% 5 ML AMPUL ONE (12:26)
[2018-09-12] MEDS ORDERED: *HR* OxyCODONE/APAP 5/325 TABLET PO PRN ×2 (12:38→15:45)
[2018-09-12] MEDS ORDERED: Ibuprofen 400 MG TABLET PO PRN (12:38)
--- NOTE | 2018-09-12 12:43 | Anesthesia Procedures ---
Date of Encounter: 09/12/18 Time of Encounter: 12:30 Procedures: Anesthesia - Epidural/Spinal Patient ID/Chart reviewed: Yes Patient examined: Yes Consent Obtained: Yes Supplemental Oxygen: Nasal Cannula Supplemental Oxygen Rate (L/min): 2 Sedation: Versed (mg): 2 Sedation: Fentanyl (mcg): 100 Site Prep: Aseptic Technique, Sterile prep and drape, 0.5% Chlorhexidine/Alcohol Patient position: upright Local Anesthetic: Lidocaine 1% Amount of Local Anesthetic used: 3 Interspace Used: L4-L5 Blood: No CSF: Yes Paresthesia: No Spinal Needle Gauge: 22 Spinal Dose: bupivicaine 0.5% 3ml Vitals + FHT's: Vital Signs - Last 8 Hours Temp Pulse Resp BP Pulse Ox 09/12/18 12:35 97.4 F L 59 18 143/61 96 09/12/18 12:17 54 56 130/63 95 09/12/18 12:05 65 18 143/92 97 09/12/18 11:08 97.4 F L 59 18 143/61 96 Intake and Output 09/11/18 09/12/18 09/12/18 23:59 07:59 15:59 Other: Weight 102.965 kg Patient Weight 09/12/18 23:59 Weight 102.965 kg - Nerve Block Procedure Date: 09/12/18 Time: 12:30 Allergies/Adv Reactions: morphine, codeine Pre-op Diagnosis: right knee arthritis Surgical Procedure: right knee arthroplasty Checklist: Correct Patient Identifier, Correct procedure, History checked Correct side: Right Blood Thinner: No Monitor Applied: EKG, BP, Pulse Oximetry Supplemental Oxygen via Nasal Cannula (L/min): 2 Sedation: Versed (mg): 2 Sedation: Fentanyl (mcg): 100 Indication: Post Op Analgesia Pre-op Neuro Deficits: No Block Type: Other (addductor canal) Sterile Technique: Yes Ultrasound used: Yes Anatomy identified: Yes Visual spread of Local: Yes Neuro Stimulation: No Blood on Needle Aspiration: No Smooth Injection of Local: Yes Pain with Injection of Local: No Prep: Chlorhexadine Needle: 21 x 100 mm Stimuplex Local: Ropivacaine (0.5% ropi 20ml -adductor ) Volume (cc): 20 Number of Attempts: 1 Complications: None/effective block Vitals: Vital Signs - Last 8 Hours Temp Pulse Resp BP Pulse Ox 09/12/18 12:35 97.4 F L 59 18 143/61 96 09/12/18 12:30 52 18 86/60 97 09/12/18 12:17 54 56 130/63 95 09/12/18 12:05 65 18 143/92 97 09/12/18 11:08 97.4 F L 59 18 143/61 96 Intake and Output 09/11/18 09/12/18 09/12/18 23:59 07:59 15:59 Other: Weight 102.965 kg Patient Weight 09/12/18 23:59 Weight 102.965 kg
[2018-09-12] MEDS ORDERED: Tranexamic Acid 1,000 MG/10 ML VIAL ONE (12:45)
--- NOTE | 2018-09-12 13:50 | Orthopedic Operative Note ---
Date of procedure: 09/12/18 Pre-op diagnosis: Right knee arthritis Post-op diagnosis: same Procedure: Procedure: Right robotic-assisted Total knee replacement Estimated blood loss: 200 cc Hardware: Metal and polyethylene replacement. Bryan Femur: 4 Tibia: 4 TS insert 9: Patella: 36 Exam Under anesthesia: 10 degree flexion contracture 2 degrees varus as calculated by the robot full flexion and no instability Procedural Notes: Grade 4 arthritic changes all 3 compartments. Operative procedure: The patient was brought to the operating room and placed on the operating room table. After general anesthesia was administered the operative knee was examined. Findings were noted in the exam under anesthesia. The operative extremity was prepped and draped in sterile surgical fashion. The patient received IV antibiotics prior to skin incision. A standard midline incision was made centered over the patella. The incision was made through the skin and subcutaneous tissue. A medial parapatellar tendon approach was performed. Care was taken to preserve tissue along the medial aspect of the patella. And to protect the patella tendon. The deep MCL was released off the medial tibia. The infra patella fat pad was excised. The patella was everted and cut was made at the level of the insertion of the quadriceps and patella tendon. The patella was sized the guide was seated and the lug holes are drilled. Knee was brought into flexion. Patient noted to have grade 4 arthritic changes all 3 compartments. Steinmann pins were placed in the tibia and the femur for the tibial and femoral arrays respectively. Checkpoints were also placed in the tibia and the femur for calculation purposes. The knee including the femur and the tibial registered. Osteophytes, ACL and PCL were excised at this point. Extension and flexion were assessed with a valgus stress components were adjusted on the computer to balance the knee. Femoral cuts were made first with robotic assistance, these included the anterior cut posterior cuts chamfer cuts. Tibial cut was then performed with robotic assistance as well. Bone fragments were removed, as well as the medial and lateral meniscus. The size 4 femoral guide was seated box cut was made lug holes are drilled. The size 4 tibial tray was seated and prepared with the fin cutter. Trial reduction with the 9 TS Germaine revealed extension of 0 degree and 1 degree varus full flexion. No varus valgus instability. Trial reduction revealed excellent patella tracking. All trial components were removed all bony surfaces were irrigated. The Tibia was seated followed by the femur, The selected Germaine size was seated and secured patella. Patient had similar findings for motion and stability. The knee was closed by the PA. The knee was then irrigated out with 2 L of pulse irrigation. The extensor mechanism was closed with #2 FiberWire suture and #2 PDS suture. The subcutaneous tissue was then irrigated and closed deep with #1 PDS suture superficially with 0 PDS suture and skin was closed with zip tie The patient was then placed in a sterile dressing and a postoperative brace extubated and transferred to recovery room in stable condition. Anesthesia: spinal Surgeon: Bereket Jamil Was there an tmd teacher assistant present: No Estimated blood loss (cc): 200 Condition: stable Disposition: PACU
--- NOTE | 2018-09-12 15:07 | Anesthesia Evaluation Post Op ---
Date of Encounter: 09/12/18 Time of Encounter: 15:15 - Vital Signs Vital Signs: Vital Signs/O2 Sat/Glucose, Most Current Temp Pulse Resp BP Pulse Ox 09/12/18 14:55 97.6 F 63 16 126/59 93 09/12/18 14:45 57 13 125/57 92 09/12/18 14:35 61 18 117/59 92 09/12/18 14:25 97.9 F 68 16 116/55 94 09/12/18 12:35 97.4 F L 59 18 143/61 96 09/12/18 12:30 52 18 86/60 97 09/12/18 12:17 54 56 130/63 95 09/12/18 12:05 65 18 143/92 97 09/12/18 11:08 97.4 F L 59 18 143/61 96 - Lungs Lungs: Clear Ascult./Percussion - Airway Airway: Non-obstructed - Cardiovascular Regular Rate - Mental Status Mental Status: Alert & Oriented, Answers Appropriately - Pain Pain Scale: 0 - Nausea Vomiting Nausea Vomiting: Not Present - Hydration Hydration: Tolerates oral liquids - Discharge PostOp Status: Transfer Patient to floor
[2018-09-12 15:16] LABS: Hematocrit 35.9 % (35.3-44.9); Hemoglobin 12.2 g/dL (11.5-15.4)
[2018-09-12] MEDS ORDERED: *HR* OxyCODONE Immed Rel 5 MG TABLET PO PRN (15:45)
[2018-09-12] MEDS ORDERED: *HR* Promethazine 25 MG/ML VIAL IVP PRN (15:45)
[2018-09-12] MEDS ORDERED: MOM Conc 10 ML UD.LIQ PO PRN (15:45)
[2018-09-12] MEDS ORDERED: Ondansetron 4 MG/2 ML VIAL IVP PRN (15:45)
[2018-09-12] MEDS ORDERED: Sennosides 8.6 MG TABLET PO PRN (15:45)
[2018-09-12] MEDS ORDERED: Temazepam 15 MG CAPSULE PO PRN (15:45)
[2018-09-12] MEDS ORDERED: traMADol 50 MG TABLET PO PRN (15:45)
[2018-09-12] MEDS: Ascorbic Acid 500 MG TABLET PO SCH (17:46)
[2018-09-12] MEDS: *HR* Enoxaparin 30 MG/0.3 ML SYRINGE SQ SCH (20:00)
[2018-09-13] MEDS: *HR* Enoxaparin 30 MG/0.3 ML SYRINGE SQ SCH ×2 (05:53→18:58)
--- NOTE | 2018-09-13 06:41 | Orthopedics Progress Note ---
Date of Encounter: 09/13/18 Time of Encounter: 06:41 Subjective Interval history: Patient was seen this morning doing well without complaints. Afebrile vital signs stable. Operative extremity: Neurovascularly intact Dressing clean dry and intact Calves nontender Assessment and plan: Continue with postoperative care Postop hematocrit 35 Objective Vital signs: Vital Signs Temp Pulse Resp BP Pulse Ox 09/13/18 03:56 97.9 F 47 15 133/75 95 09/12/18 23:22 97.7 F 67 15 119/74 94 09/12/18 19:57 97.7 F 45 15 136/82 91 09/12/18 15:25 97.1 F L 54 15 129/61 92 09/12/18 15:15 53 13 118/58 97 09/12/18 15:05 56 13 124/58 92 09/12/18 14:55 97.6 F 63 16 126/59 93 09/12/18 14:45 57 13 125/57 92 09/12/18 14:35 61 18 117/59 92 09/12/18 14:25 97.9 F 68 16 116/55 94 09/12/18 12:35 97.4 F L 59 18 143/61 96 09/12/18 12:30 52 18 86/60 97 09/12/18 12:17 54 56 130/63 95 09/12/18 12:05 65 18 143/92 97 09/12/18 11:08 97.4 F L 59 18 143/61 96 Intake and Output 09/12/18 09/12/18 09/13/18 15:59 23:59 07:59 Intake Total 100 / 100 Output Total 200 / 200 Balance -200 / -200 100 / 100 Intake: IV Fluids 100 / 100 Ancef 2,000 MG In 0.9 % Sodium 100 / 100 Chloride 100 ML @ 200 mls/hr IVPB Q8H [facility] Rx#:[id number] Output: Estimated Blood Loss 200 / 200 Other: Weight 102.965 kg 103.2 kg Patient Weight 09/13/18 23:59 Weight 103.2 kg - Labs CBC & BMP: 09/12/18 14:48 Consult Discharge Plan - Plan Referrals: Leilani Montejo, [facility] ADMINISTR[facility] [Primary Care Provider] - Prescriptions: Aspirin Enteric Coated [Aspirin EC] 325 mg PO BID 10 Days #20 tablet. Docusate Sodium [Colace] 100 mg PO BID 5 Days #10 capsule OxyCODONE Immed Rel [Roxicodone 5 MG] 5 mg PO Q6HR PRN 5 Days #20 tablet PRN Reason: Severe Pain
[2018-09-13 07:17] LABS: Basophils % 0.2 %; Hematocrit 36.2 % (35.3-44.9); Hemoglobin 12.2 g/dL (11.5-15.4); Immature Granulocytes % 0.5 % (0-4); Lymphocytes % 8.8 %; Mean Corpuscular HGB Conc 33.7 g/dL (31.6-35.5); Mean Corpuscular Volume 88.9 fL (83.0-100.0); Mean Platelet Volume 11.6 fL (9.4-12.4); Monocytes # 0.4 K/mcL (0.0-1.3); Monocytes % 3.5 %; Neutrophils # 10.3 K/mcL (1.6-8.9); Platelet Count 182 K/mcL (140-400); Red Blood Count 4.07 M/mcL (3.82-4.97); Red Cell Distribution Width 13.6 % (11.5-14.5)
[2018-09-13 07:36] LABS: Calcium 9.2 mg/dL (8.6-10.3)
[2018-09-13] MEDS: Ascorbic Acid 500 MG TABLET PO SCH ×2 (09:27→18:58)
[2018-09-13] MEDS: Cholecalciferol (D-3) 1,000 UNIT TABLET PO SCH (09:27)
[2018-09-13] MEDS: Bisoprolol/HCTZ 5/6.25 TABLET PO SCH (09:27)
[2018-09-13] MEDS: Loratadine 10 MG TABLET PO SCH (09:27)
[2018-09-13] MEDS: Multivit/Ca/Min/Fe/FA 1 TAB TABLET PO SCH (09:27)
--- NOTE | 2018-09-13 16:02 | Event Note ---
Date of Encounter: 09/13/18 Time of Encounter: 12:40 PCR - POD#1 s/p Right TKR 09/12/18 Patient seen at bedside, without complaints. A&O x 3 Afebrile, vital signs stable. Dressings had noted bleeding to distal end of dressing. no calf tenderness to palpation, good dorsiflexion of foot. sensation intact distally Labs reviewed. H/H - 12.2/36.2 stable, asymptomatic CKD - monitoring, labs stable to preop Pain control: adequate Participating in PT. All questions and concerns addressed. Educated on use of incentive spirometer. Encouraged ambulation and proper hydration. Patient educated on post-operative restrictions and post-operative care. Assessment and plan: Continue with postoperative care Discharge plan: plan for ECF possibly pending auth
--- NOTE | 2018-09-13 16:04 | Physician Discharge Referral ---
ExtendedCare Referral Info Transfer To: [facility] Provider in Charge: Dr. Jamil - Diagnosis (1) Status post total right knee replacement Priority: Primary Status: Acute (2) Osteoarthritis of right knee Priority: Primary Status: Chronic (3) Obesity (BMI 30-39.9) Priority: Secondary Status: Chronic (4) Chronic kidney disease (CKD) Priority: Secondary Status: Chronic (5) GERD (gastroesophageal reflux disease) Priority: Secondary Status: Chronic (6) HTN (hypertension) Priority: Secondary Status: Chronic Expected Duration of Placement: <30 days Prognosis: Good Aware of Diagnosis: Patient Aware of Prognosis: Patient - Transfer Medications Prescriptions: OxyCODONE Immed Rel [Roxicodone 5 MG] 5 mg PO Q6HR PRN 5 Days #20 tablet PRN Reason: Severe Pain Aspirin Enteric Coated [Aspirin EC] 325 mg PO BID 10 Days #20 tablet. Docusate Sodium [Colace] 100 mg PO BID 5 Days #10 capsule Home Medications: Bisoprolol/HCTZ 5/6.25 [Ziac 5/6.25] 1 tab PO DAILY 10/05/16 [History] Cetirizine HCl [Zyrtec] 10 mg PO DAILY 10/05/16 [History] Omeprazole [PriLOSEC] 20 mg PO DAILY 10/05/16 [History] Tramadol HCl [Ultram] 50 mg PO QID PRN 10/05/16 [History] Aspirin Enteric Coated [Aspirin EC] 325 mg PO BID 10 Days #20 tablet. 09/12/18 [Rx] Cholecalciferol (D-3) [Vitamin D] 1,000 unit PO DAILY 09/12/18 [History] Docusate Sodium [Colace] 100 mg PO BID 5 Days #10 capsule 09/12/18 [Rx] Docusate [Colace] 100 mg PO DAILY 09/12/18 [History] OxyCODONE Immed Rel [Roxicodone 5 MG] 5 mg PO Q6HR PRN 5 Days #20 tablet 09/12/18 [Rx] Allergies/Adverse Reactions: Allergy/AdvReac Type Severity Reaction Status Date / Time codeine Allergy Itching Verified 08/31/18 13:42 morphine Allergy Insomnia Verified 08/31/18 13:42 - Respiratory Orders None Smoking Cessation: Smoking cessation has been advised. For more information, call the [place] Tobacco Quit Line at 0-331-CAJK-NOW. - Ancillary Orders May use pressure relief devices daily prn, May go on SHEEBA w/family/respon constitution party w/meds at nurse discretion PRN, May consult with Dentist, Field Technical Specialist, Senior Sharepoint Developer PRN - Advance Directives Code Status: Full Code - Mobility Orders Chair, Ambulate - Rehabiliation Orders Rehab Potential: Good Rehab Orders: ROM Exercises, Evaluation for Physical Therapy, Evaluation for Occupational Therapy Other: Opsite dressing, leave intact until first post-operative visit. If dressing becomes >50% saturated, contact office, remove dressing and place appropriate dressing in its place. Do not allow for dressing to get wet. Zipline/Krebs in place, plan to remove at post-operative day #14-16. Total Joint Precautions x 6 weeks Apply cold therapy wrap 3-6x/day for 20 minutes at a time. Encourage ambulation throughout the day Use Incentive spirometer 10x/hour. Elevate affected extremity above heart as tolerated. Brace: Wear knee immobilizer at night x 2 weeks. - Treatments Skin tear care topically daily PRN per policy - Diet Orders Regular CERTIFICATION: I certify that the transfer of the above named patient to an Extended Care Facility is necessary for the continuing treatment of the diagnosis listed. The above information is true and accurate reflection of patient's current condition. Confidential - Redisclosure prohibited without a patient's written consent.
[2018-09-14] MEDS: *HR* Enoxaparin 30 MG/0.3 ML SYRINGE SQ SCH (06:16)
--- NOTE | 2018-09-14 06:22 | Orthopedics Progress Note ---
Date of Encounter: 09/14/18 Time of Encounter: 06:22 Subjective Interval history: Patient was seen this morning doing well without complaints. Afebrile vital signs stable. Operative extremity: Neurovascularly intact Dressing clean dry and intact Calves nontender Assessment and plan: Continue with postoperative care Awaiting placement 5 Objective Vital signs: Vital Signs Temp Pulse Resp BP Pulse Ox 09/14/18 04:15 97.7 F 55 16 136/72 94 09/13/18 20:10 97.5 F L 57 16 120/78 97 09/13/18 10:18 97.7 F 58 16 123/66 98 09/13/18 09:28 52 09/13/18 06:58 97.5 F L 45 16 141/79 95 Intake and Output 09/13/18 09/13/18 09/14/18 15:59 23:59 07:59 Intake Total 480 / 480 300 / 300 Balance 480 / 480 300 / 300 Intake: Oral 480 / 480 300 / 300 Other: Meal Lunch Percent of Meal Consumed 90% # Voids 1 1 - Labs CBC & BMP: 09/13/18 06:42 09/13/18 06:42 Labs: Abnormal lab results WBC 11.8 K/mcL (4.3-11.1) H 09/13/18 06:42 Neutrophils # 10.3 K/mcL (1.6-8.9) H 09/13/18 06:42 BUN 24 mg/dL (8-23) H 09/13/18 06:42 Est GFR ( Amer) 59 (> 60) L 09/13/18 06:42 Est GFR (Non-Af Amer) 49 (> 60) L 09/13/18 06:42 Glucose 119 mg/dL (70-105) H 09/13/18 06:42 Consult Discharge Plan - Plan Referrals: Lianna Flores PAC [Physician Construction Mgr] - 09/22/18 9:30 am Bereket Jamil MD [Partnered Physician] - 10/12/18 4:45 pm Leilani Montejo CNP [Primary Care Provider] - 09/29/18 10:00 am Prescriptions: Aspirin Enteric Coated [Aspirin EC] 325 mg PO BID 10 Days #20 tablet. Docusate Sodium [Colace] 100 mg PO BID 5 Days #10 capsule OxyCODONE Immed Rel [Roxicodone 5 MG] 5 mg PO Q6HR PRN 5 Days #20 tablet PRN Reason: Severe Pain
[2018-09-14 07:38] LABS: Basophils % 0.3 %; Eosinophils % 0.2 %; Hematocrit 34.1 % (35.3-44.9); Immature Granulocytes % 0.3 % (0-4); Lymphocytes # 2.4 K/mcL (0.6-4.6); Lymphocytes % 28.1 %; Mean Corpuscular HGB Conc 32.3 g/dL (31.6-35.5); Mean Corpuscular Hemoglobin 29.6 pg (28.0-33.3); Mean Corpuscular Volume 91.7 fL (83.0-100.0); Mean Platelet Volume 11.3 fL (9.4-12.4); Monocytes # 0.8 K/mcL (0.0-1.3); Monocytes % 8.7 %; Neutrophils # 5.4 K/mcL (1.6-8.9); Platelet Count 180 K/mcL (140-400); Red Blood Count 3.72 M/mcL (3.82-4.97); Red Cell Distribution Width 14.1 % (11.5-14.5); Segmented Neutrophils % 62.4 %
[2018-09-14 07:56] LABS: Potassium 3.6 mEq/L (3.5-5.1)
[2018-09-14] MEDS: Cholecalciferol (D-3) 1,000 UNIT TABLET PO SCH (08:04)
[2018-09-14] MEDS: Ascorbic Acid 500 MG TABLET PO SCH (08:04)
[2018-09-14] MEDS: Loratadine 10 MG TABLET PO SCH (08:04)
[2018-09-14] MEDS: Multivit/Ca/Min/Fe/FA 1 TAB TABLET PO SCH (08:04)
[2018-09-14] MEDS: Bisoprolol/HCTZ 5/6.25 TABLET PO SCH (08:04)
[2018-09-14 12:13] VITALS: BP 136/63
== END 2018-09-14 14:49 | disposition home or self-care (01) | DRG 470 ==
LOC: SAMDAY 10:39 → 3NENU 15:39
PROVIDERS: ADMIT Orthopaedic Surgery; ATTEND Orthopaedic Surgery